=== PATIENT | female | born 1960 | race Two or more races ===

== ENCOUNTER 2024-09-17 18:40 | Emergency (ER) | payer OTHER, MEDICAID ==
[~2024-09-17] VITALS: Ht 177.8 cm; Wt 86.3 kg
[2024-09-17 18:40] VITALS: BP 0/0; PULSE 0; RESP 0; O2SAT 0
[2024-09-17] MEDS ORDERED: CALCIUM CHLOR(10%) 100MG/ML 10ML SYRINGE IV ONE (18:41)
[2024-09-17] MEDS ORDERED: NOREPINEPHRINE 8 MG/250ML KIT 250 ML IV ONE (18:47)
--- NOTE | 2024-09-17 18:58 | ED.PDOC ---
CPR-HPI HPI Comments 63 y/o obese F, with limited known history of left BKA and ESRD w/HD, is BIBA for c/c cardiac arrest. Per EMS report, patient was found unresponsive outside of a [employer] restaurant, this evening, by bystanders. Bystanders were reported to have begun CPR prior to EMS arrival, with patient vomiting 1x prior to becoming unresponsive, again. On scene, patient was found in asystole and apneic. CPR was resumed by EMS, with a total of 3x rounds of epinephrine administration (last administered at 1836) and I/O placed to right lower leg. Patient was commented to have remained in V-fib until V-tach at 200 heart rate was obtained prior to arrival. Upon arrival time of 1837, patient remained unresponsive. Per daughter, who arrived after initial encounter, patient was reported to have just left aforementioned restaurant and being assisted to the car when her face turned cyanotic prior to becoming unresponsive, suddenly, with no endorsed prior complaints. 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 History: Unknown, Unobtainable Family History Family History: Unknown, Unobtainable Social History Smoker: Unknown, Unobtainable Alcohol: Unknown, Unobtainable Drugs: Unknown, Unobtainable Lives In: Unknown, Unobtainable All Other Systems: Deferred Physical Exam Exam Comments Deferred due to patient being unresponsive General Appearance: Obese HEENT: NOT DONE Neck: NOT DONE Respiratory: NOT DONE Cardiovascular: NOT DONE Breast Exam: Deferred Gastrointestinal: NOT DONE Genitalia: Deferred Pelvic: Deferred Rectal: Deferred Extremities: NOT DONE Neurologic: NOT DONE Cerebellar Function: NOT DONE Reflexes: NOT DONE Skin: NOT DONE Lymphatic: NOT DONE Was a procedure done? Was a procedure done?: Yes Sedation Sedation?: No Intubation Indication: Respiratory Insufficiency, Airway Protection Prep: Preoxygenation Pretreated with: Nothing Medicated with: Nothing Intubation Approach: Orotracheal (8.0) Intubation size: cm (24 at the lip) Informed consent obtained: No Risks/benefits/alt described: No Notes Intubated at 1841 1849 - initial endotracheal tube occluded with patient's food content; required removal; unsuccessful in intubating patient second time. Differential Dx CPR Differential Diagnosis: Cardiopulmonary arrest, Cardiogenic shock, Dysrhythmia, Electrolyte disorder, Heart Block, Myocardial Infarction, Pulmonary Embolus X-Ray, Labs, Meds, VS Vital Signs Date Time Temp Pulse Resp B/P (MAP) Pulse Ox O2 Delivery O2 Flow Rate FiO2 09/17/24 20:02 Ambu-Bag 09/17/24 18:40 0 0 0 Non-Rebreather 15 N/A 09/17/24 18:40 0 0 0/0 (0) 0 Time of 1ST Reevaluation: 18:57 Reevaluation 1ST: Patient Education/Counseling: Other (Patient ) Family Education/Counseling: Treatment, Other (Patient's expiration ) Additional Information Previous visits reviewed: N/A The following tests were ordered, and results were reviewed by me: N/A Additional Information was gathered from interviewing the following independent historians: EMS, daughter I reviewed and agreed with the following test results read by other providers: N/A I discussed treatment and results with medical personnel and: daughter SEPSIS Sepsis Screen Vital Signs Date Time Temp Pulse Resp B/P (MAP) Pulse Ox O2 Delivery O2 Flow Rate FiO2 09/17/24 20:02 Ambu-Bag 09/17/24 18:40 0 0 0 Non-Rebreather 15 N/A 09/17/24 18:40 0 0 0/0 (0) 0 Departure 1 Departure Time of Disposition: 05:52 (Patient presented in cardiac arrest. ACLS per protocols. Patient ultimately .) Impression: Primary Impression: Cardiac arrest Disposition: 20 Condition: Other ( ) Critical Care Note Critical Care Time?: No Heart Score Heart Score: Heart Score Response (Comments) Value History N/A 0 EKG N/A 0 Age N/A 0 Risk Factors N/A 0 Troponin N/A 0 Total 0 Stability Stability form required: No I personally scribed for ANALI MEJIA MD ([email or web address]) on 09/17/24 at 18:58. Electronically submitted by Abdi Penn ([email or web address]). I personally scribed for ANALI MEJIA MD ([email or web address]) on 09/17/24 at 19:26. Electronically submitted by Abdi Penn ([email or web address]). I personally scribed for ANALI MEJIA MD ([email or web address]) on 09/17/24 at 19:44. Electronically submitted by Abdi Penn ([email or web address]). ANALI MEJIA MD Sep 17, 2024 18:58
--- NOTE | 2024-09-17 20:02 | RESUS ---
CODE BLUE ASSESSSMENT History of Events History of Events: Patient brought to ER via EMS, secured code blue, CPR in progress. Total downtime with EMS approximately 35 min. Per EMS patient was found outside of a local restaurant unresponsive by bystanders. Unknown downtime prior to EMS arrival. CPR initiated by EMS upon their arrival, total of 3 epi given en route to ER. 3 episodes of VFib/ 1 episode of Vtach, shocked with no sustained cardiac rhthym to follow. Initial Information Date: Sep 17, 2024 Time: 18:38 Location of Arrest: In Field Arrest Witnessed: No CPR started by whom: EMS Pre-Hospital Care: ACLS Type of arrest: Cardiac Spontaneous Respirations: No Pulse Present: No Monitoring: Pulse Oximetry, Capnography, Telemetry Crash Cart Opened and Supplies: Yes Airway Ventilation Breathing at Onset: Assisted Oxygen Delivery Method: Ambu-Bag Artificial Ventilation: Bag/Endo tube Intubation Time: 18:42 Intubation Size: 8.0 cuffed Intubated by: Dr Wiley Intubation Attempts: 1 Intubated orally: Yes Tube secured at: 24 Suctioning (Oral/Tracheal): Yes Comments: Large amounts of stomach contents expelled during intubation, Dr Wiley reintubated patient at 1853, ett 8.5 24 at the lip Circulation Circulation #1: Time: 18:40 Circulation Comment: asystole Circulation #2: Time: 18:42 Pulse Rate (adult): 124 Circulation Comment: ROSC, BP unobtainable Circulation #3: Time: 18:45 Circulation Comment: asystole (no pulse detected at this time) kelsey rios called for second time Circulation #4: Time: 18:47 Circulation Comment: Asystole Circulation #5: Time: 18:49 Circulation Comment: asystole Circulation #6: Time: 18:51 Circulation Comment: asystole Circulation #7: Time: 18:54 Circulation Comment: asystole Circulation #8: Time: 18:56 Circulation Comment: asystole (TOD) Procedure - IV Procedure - IV #1: IV start time: 18:42 IV Side: Right IV Location: Hand IV Catheter Type: Saline Lock IV Placed: In Hospital IV Gauge: 20 IV Line Care: Saline Flush Comment established by JANEEN Berrios Procedure - IV #2: IV start time: 18:51 IV Side: Right IV Location: Wrist IV Catheter Type: Saline Lock IV Placed: In Hospital IV Gauge: 18 IV Line Care: Saline Flush Procedure - Intraosseous Site of Intraosseous: Tibia rom-medial Intraosseous inserted by: placed by EMS prior to ER arrival Medications & Response Medications and Responses #1: Medication Time: 18:41 ADULT Medications Given ADULT: Epinephrine 1 mg, Calcium Chloride 10 mL Route of Administration: IO Medications and Responses #2: Medication Time: 18:45 ADULT Medications Given ADULT: Epinephrine 1 mg, 2 Amps Na Bicarb Route of Administration: IV Medications and Responses #3: Medication Time: 18:49 ADULT Medications Given ADULT: Epinephrine 1 mg, Magnesium Sulfate 2 gm Route of Administration: IV Medications and Responses #4: Medication Time: 18:53 ADULT Medications Given ADULT: Epinephrine 1 mg Route of Administration: IV Nurses Notes Issa Coma Scale Eye Opening: None (1) [place] Coma Scale Verbal: None (1) [place] Coma Scale Motor: None (1) Pupil Reaction: Non Reactive, Unequal Bedside Blood Glucose: 334 Time Code Ended Time Code Ended: 18:56 Post Arrest Status: Outcome of code: Unsuccessful Patient pronounced by: Dr Wiley Time patient pronounced: 18:56 Code Team Present: Dr Wiley RT Adiel Garcia RN Sierra Martinez Sep 17, 2024 20:02
== END 2024-09-17 18:57 ==
LOC: EDBD 18:40 → ER 18:40
DX: I46.9 Cardiac arrest, cause unspecified (principal); I49.01 Ventricular fibrillation; E66.9 Obesity, unspecified; N18.6 End stage renal disease; Z89.512 Acquired absence of left leg below knee; Z68.27 Body mass index [BMI] 27.0-27.9, adult
CPT/HCPCS: 31500; 82947; 92950; 99285; J0169; J3475